=== PATIENT | female | born 1955 | race Caucasian/White ===

== ENCOUNTER 2019-01-08 19:06 | Inpatient (IN) ==
[2019-01-08] MEDS ORDERED: *HR* LORazepam 0.5 MG TABLET PO ONE (19:21)
[2019-01-08 19:47] LABS: Basophils # 0.1 K/mcL (0.0-0.2); Basophils % 0.8 %; Eosinophils # 0.1 K/mcL (0.0-0.6); Hematocrit 41.3 % (35.3-44.9); Hemoglobin 14.5 g/dL (11.5-15.4); Immature Granulocytes % 0.2 % (0-4); Immature Platelets 1.6 % (1.1-6.1); Lymphocytes % 52.5 %; Mean Corpuscular HGB Conc 35.1 g/dL (31.6-35.5); Mean Corpuscular Hemoglobin 30.7 pg (28.0-33.3); Mean Corpuscular Volume 87.3 fL (83.0-100.0); Mean Platelet Volume 8.7 fL (9.4-12.4); Monocytes # 0.6 K/mcL (0.0-1.3); Monocytes % 5.6 %; Neutrophils # 4.6 K/mcL (1.6-8.9); Platelet Count 377 K/mcL (140-400); Red Blood Count 4.73 M/mcL (3.82-4.97); Red Cell Distribution Width 13.6 % (11.5-14.5); Segmented Neutrophils % 39.9 %; White Blood Count 11.5 K/mcL (4.3-11.1)
[2019-01-08 20:00] LABS: Bilirubin,Urine Negative (Negative); Blood,Urine Negative (Negative); Clarity,Urine Cloudy (Clear); Color,Urine Yellow (Yellow); Glucose,Urine (UA) Normal (Normal); Ketones,Urine Negative (Negative); Leukocyte Esterase,Urine Negative (Negative); Nitrite,Urine Negative (Negative); PH,Urine 6.5 pH Units (5.0-8.0); Protein,Urine Negative (Neg-Trace); Specific Gravity,Urine 1.007 (1.010-1.025); Urobilinogen,Urine Normal (Normal)
[2019-01-08 20:02] LABS: Bacteria,Urine None Seen per hpf (None-Few); Hyaline Casts,Urine None Seen per lpf (None-Few); RBC,Urine 0-3 per hpf (0-3); Squamous Epithelial Cell,Urine Many per lpf (None-Few)
[2019-01-08 20:08] LABS: Acetaminophen < 10 mcg/mL (10-20); BUN/Creatinine Ratio 15 (6-26); Blood Urea Nitrogen 13 mg/dL (8-23); Calcium 8.9 mg/dL (8.6-10.3); Carbon Dioxide 26 mEq/L (23-29); Chloride 97 mEq/L (98-107); Ethanol < 10 mg/dL (Less than 10); Glucose 152 mg/dL (70-105); Osmolality,Calculated 273 (280-300); Potassium 3.1 mEq/L (3.5-5.1); Salicylate < 2.5 mg/dL (15.0-30.0); Sodium 130 mEq/L (136-145); eGFR For African Americans > 60 (> 60); eGFR For Non-African Americans > 60 (> 60)
[2019-01-08 20:19] LABS: Thyroid Stimulating Hormone 1.495 mcIU/mL (0.340-5.600)
[2019-01-08 20:25] LABS: Amphetamine Screen,Urine Negative ng/mL (Cutoff=1000); Barbiturate Screen,Urine Negative ng/mL (Cutoff=200); Benzodiazepines Screen,Urine Positive ng/mL (Cutoff=200); Cannabinoid Screen,Urine Negative ng/mL (Cutoff = 50); Cocaine Screen,Urine Negative ng/mL (Cutoff= 300); Opiate Screen,Urine Negative ng/mL (Cutoff=300); Phencyclidine Screen,Urine Negative ng/mL (Cutoff=25)
[2019-01-08] MEDS ORDERED: *HR* LORazepam 1 MG TABLET PO PRN (22:10)
[2019-01-08] MEDS ORDERED: hydrOXYzine pamoate 25 MG CAPSULE PO PRN (22:10)
[2019-01-08] MEDS ORDERED: Haloperidol Lactate 5 MG/ML VIAL IM PRN (22:10)
[2019-01-08] MEDS ORDERED: Mag Hydrox/Al Hydrox/Simeth 30 ML UDC PO PRN (22:10)
[2019-01-08] MEDS ORDERED: MOM Conc 10 ML UD.LIQ PO PRN (22:10)
[2019-01-08] MEDS ORDERED: *HR* LORazepam 2 MG/ML VIAL IM PRN (22:10)
[2019-01-08] MEDS ORDERED: traZODone 50 MG TABLET PO PRN (22:10)
[2019-01-08] MEDS ORDERED: Acetaminophen 325 MG TABLET PO PRN (22:10)
[2019-01-09] MEDS: Nicotine 21 MG PATCH.TD24 TD SCH ×2 (02:09→21:03)
[2019-01-09] MEDS ORDERED: diazePAM 5 MG TABLET PO PRN (07:18)
[2019-01-09] MEDS: diazePAM 5 MG TABLET PO SCH ×3 (11:13→20:46)
[2019-01-09] MEDS ORDERED: NON-FORMULARY MEDICATION 1 EACH EACH (Paliperidone Palmitate [Invega Sustenna] 234 MG) IM SCH (14:15)
[2019-01-09] MEDS: Mirtazapine 15 MG TABLET PO SCH (20:45)
[2019-01-09] MEDS: traZODone 50 MG TABLET PO SCH (20:45)
[2019-01-10] MEDS: diazePAM 5 MG TABLET PO SCH ×3 (08:36→20:25)
[2019-01-10] MEDS: BuPROPion XL (24 HR) 150 MG TABLET PO SCH (08:36)
[2019-01-10] MEDS: Nicotine 21 MG PATCH.TD24 TD SCH (08:51)
[2019-01-10] MEDS: Mirtazapine 15 MG TABLET PO SCH (20:25)
[2019-01-10] MEDS: traZODone 50 MG TABLET PO SCH (20:26)
[2019-01-11] MEDS: BuPROPion XL (24 HR) 150 MG TABLET PO SCH (08:07)
[2019-01-11] MEDS: Nicotine 21 MG PATCH.TD24 TD SCH (08:08)
[2019-01-11] MEDS: diazePAM 5 MG TABLET PO SCH (08:08)
[2019-01-11 10:06] VITALS: BP 151/90
[2019-01-11 11:00] LABS: Hematocrit 43.4 % (35.3-44.9); Hemoglobin 14.5 g/dL (11.5-15.4); Mean Corpuscular HGB Conc 33.4 g/dL (31.6-35.5); Mean Corpuscular Hemoglobin 30.1 pg (28.0-33.3); Mean Corpuscular Volume 90.2 fL (83.0-100.0); Mean Platelet Volume 9.2 fL (9.4-12.4); Platelet Count 429 K/mcL (140-400); Red Blood Count 4.81 M/mcL (3.82-4.97); Red Cell Distribution Width 14.1 % (11.5-14.5); White Blood Count 9.9 K/mcL (4.3-11.1)
[2019-01-11 11:18] LABS: Chol/HDL Ratio 4.4 (0-4.9)
[2019-01-11 11:20] LABS: Alanine Aminotransferase 9 Units/L (7-52); Albumin/Globulin Ratio 1.7 (1.1-2.2); Alkaline Phosphatase 78 Units/L (34-104); Aspartate Amino Transferase 13 Units/L (13-39); BUN/Creatinine Ratio 9 (6-26); Bilirubin,Total 0.3 mg/dL (0.3-1.0); Blood Urea Nitrogen 9 mg/dL (8-23); Calcium 9.4 mg/dL (8.6-10.3); Carbon Dioxide 26 mEq/L (23-29); Chloride 103 mEq/L (98-107); Globulin 2.4 g/dL (2.4-3.5); Glucose 76 mg/dL (70-105); Osmolality,Calculated 279 (280-300); Potassium 3.9 mEq/L (3.5-5.1); Sodium 136 mEq/L (136-145); Total Protein 6.4 g/dL (6.4-8.9); eGFR For African Americans > 60 (> 60); eGFR For Non-African Americans 54 (> 60)
[2019-01-11 11:41] LABS: Estimated Average Glucose 151 mg/dl
== END 2019-01-11 11:30 | disposition home or self-care (01) | DRG 885 ==
LOC: EMEROOARM 19:06 → 1ANU 22:03
PROVIDERS: ADMIT Psychiatry & Neurology Psychiatry; ATTEND Psychiatry & Neurology Psychiatry

== ENCOUNTER 2019-01-27 11:35 | Inpatient (IN) ==
[2019-01-27 12:08] LABS: Basophils # 0.1 K/mcL (0.0-0.2); Eosinophils # 0.1 K/mcL (0.0-0.6); Hematocrit 42.3 % (35.3-44.9); Hemoglobin 14.7 g/dL (11.5-15.4); Immature Granulocytes % 0.3 % (0-4); Lymphocytes # 3.9 K/mcL (0.6-4.6); Lymphocytes % 44.1 %; Mean Corpuscular HGB Conc 34.8 g/dL (31.6-35.5); Mean Corpuscular Hemoglobin 30.8 pg (28.0-33.3); Mean Corpuscular Volume 88.7 fL (83.0-100.0); Mean Platelet Volume 8.7 fL (9.4-12.4); Monocytes # 0.7 K/mcL (0.0-1.3); Monocytes % 7.9 %; Platelet Count 374 K/mcL (140-400); Red Blood Count 4.77 M/mcL (3.82-4.97); Red Cell Distribution Width 14.5 % (11.5-14.5); Segmented Neutrophils % 45.7 %; White Blood Count 8.7 K/mcL (4.3-11.1)
[2019-01-27 12:12] LABS: Bilirubin,Urine Negative (Negative); Blood,Urine Negative (Negative); Clarity,Urine Clear (Clear); Color,Urine Yellow (Yellow); Glucose,Urine (UA) Normal (Normal); Ketones,Urine Negative (Negative); Leukocyte Esterase,Urine Negative (Negative); Nitrite,Urine Negative (Negative); PH,Urine 6.5 pH Units (5.0-8.0); Protein,Urine Negative (Neg-Trace); Specific Gravity,Urine 1.006 (1.010-1.025); Urobilinogen,Urine Normal (Normal)
[2019-01-27 12:26] LABS: Amphetamine Screen,Urine Negative ng/mL (Cutoff=1000); Barbiturate Screen,Urine Negative ng/mL (Cutoff=200); Benzodiazepines Screen,Urine Positive ng/mL (Cutoff=200); Cannabinoid Screen,Urine Negative ng/mL (Cutoff = 50); Cocaine Screen,Urine Negative ng/mL (Cutoff= 300); Opiate Screen,Urine Negative ng/mL (Cutoff=300); Phencyclidine Screen,Urine Negative ng/mL (Cutoff=25)
[2019-01-27 12:28] LABS: Acetaminophen < 10 mcg/mL (10-20); BUN/Creatinine Ratio 10 (6-26); Blood Urea Nitrogen 9 mg/dL (8-23); Carbon Dioxide 28 mEq/L (23-29); Chloride 100 mEq/L (98-107); Ethanol < 10 mg/dL (Less than 10); Glucose 100 mg/dL (70-105); Osmolality,Calculated 277 (280-300); Potassium 3.1 mEq/L (3.5-5.1); Salicylate < 2.5 mg/dL (15.0-30.0); Sodium 134 mEq/L (136-145); eGFR For African Americans > 60 (> 60); eGFR For Non-African Americans > 60 (> 60)
[2019-01-27] MEDS ORDERED: diazePAM 5 MG TABLET PO ONE (14:20)
[2019-01-27] MEDS ORDERED: Ibuprofen 200 MG TABLET PO PRN (18:27)
[2019-01-27] MEDS ORDERED: *HR* LORazepam 2 MG/ML VIAL IM PRN (18:28)
[2019-01-27] MEDS ORDERED: Mag Hydrox/Al Hydrox/Simeth 30 ML UDC PO PRN (18:28)
[2019-01-27] MEDS ORDERED: MOM Conc 10 ML UD.LIQ PO PRN (18:28)
[2019-01-27] MEDS ORDERED: Haloperidol Lactate 5 MG/ML VIAL IM PRN (18:28)
[2019-01-27] MEDS ORDERED: *HR* LORazepam 1 MG TABLET PO PRN (18:28)
[2019-01-27] MEDS: Nicotine 21 MG PATCH.TD24 TD SCH (20:51)
[2019-01-27] MEDS: Potassium Chloride Elixir 20 MEQ/15 ML UDC PO SCH (20:52)
[2019-01-27] MEDS: hydrOXYzine pamoate 25 MG CAPSULE PO PRN (20:53)
[2019-01-27] MEDS: Cholecalciferol (D-3) 1,000 UNIT (25MCG) TABLET PO SCH (20:54)
[2019-01-27] MEDS: traZODone 50 MG TABLET PO SCH (20:54)
[2019-01-27] MEDS: diazePAM 5 MG TABLET PO PRN (20:57)
[2019-01-28] MEDS: diazePAM 5 MG TABLET PO PRN (08:35)
[2019-01-28] MEDS: Furosemide 40 MG TABLET PO SCH (08:35)
[2019-01-28] MEDS: Nicotine 21 MG PATCH.TD24 TD SCH (08:35)
[2019-01-28] MEDS ORDERED: BuPROPion XL (24 HR) 150 MG TABLET PO SCH ×2 (09:00→11:15)
[2019-01-28] MEDS ORDERED: BuPROPion XL (24 HR) 150 MG TABLET PO ONE (11:14)
[2019-01-28] MEDS: diazePAM 5 MG TABLET PO SCH ×2 (14:40→21:34)
[2019-01-28] MEDS: Cholecalciferol (D-3) 1,000 UNIT (25MCG) TABLET PO SCH (21:33)
[2019-01-28] MEDS: traZODone 50 MG TABLET PO SCH (21:34)
[2019-01-28] MEDS: Potassium Chloride Elixir 20 MEQ/15 ML UDC PO SCH (21:35)
[2019-01-29] MEDS: Nicotine 21 MG PATCH.TD24 TD SCH (09:36)
[2019-01-29] MEDS: diazePAM 5 MG TABLET PO SCH ×3 (09:36→20:30)
[2019-01-29] MEDS: BuPROPion XL (24 HR) 150 MG TABLET PO SCH (09:36)
[2019-01-29] MEDS: Furosemide 40 MG TABLET PO SCH (09:36)
[2019-01-29] MEDS ORDERED: Cyanocobalamin (B-12) 1,000 MCG/ML VIAL IM ONE (13:38)
[2019-01-29] MEDS: traZODone 50 MG TABLET PO SCH (20:29)
[2019-01-29] MEDS: Potassium Chloride Elixir 20 MEQ/15 ML UDC PO SCH (20:29)
[2019-01-29] MEDS: Cholecalciferol (D-3) 1,000 UNIT (25MCG) TABLET PO SCH (20:29)
[2019-01-29] MEDS: hydrOXYzine pamoate 25 MG CAPSULE PO PRN (22:27)
[2019-01-30] MEDS: BuPROPion XL (24 HR) 150 MG TABLET PO SCH (09:35)
[2019-01-30] MEDS: Furosemide 40 MG TABLET PO SCH (09:35)
[2019-01-30] MEDS: diazePAM 5 MG TABLET PO SCH ×3 (09:35→21:14)
[2019-01-30] MEDS: Cyanocobalamin (B-12) 1,000 MCG TABLET PO SCH (09:35)
[2019-01-30] MEDS: Folic Acid 1 MG TABLET PO SCH (09:35)
[2019-01-30] MEDS: Nicotine 21 MG PATCH.TD24 TD SCH (09:36)
[2019-01-30] MEDS: traZODone 50 MG TABLET PO SCH (21:13)
[2019-01-30] MEDS: hydrOXYzine pamoate 25 MG CAPSULE PO PRN (21:13)
[2019-01-30] MEDS: Cholecalciferol (D-3) 1,000 UNIT (25MCG) TABLET PO SCH (21:13)
[2019-01-30] MEDS: Potassium Chloride Elixir 20 MEQ/15 ML UDC PO SCH (21:14)
[2019-01-31] MEDS: Furosemide 40 MG TABLET PO SCH (09:01)
[2019-01-31] MEDS: BuPROPion XL (24 HR) 150 MG TABLET PO SCH (09:01)
[2019-01-31] MEDS: Cyanocobalamin (B-12) 1,000 MCG TABLET PO SCH (09:01)
[2019-01-31] MEDS: diazePAM 5 MG TABLET PO SCH (09:01)
[2019-01-31] MEDS: Folic Acid 1 MG TABLET PO SCH (09:01)
[2019-01-31] MEDS: Nicotine 21 MG PATCH.TD24 TD SCH (09:02)
[2019-01-31 11:23] VITALS: BP 114/86
== END 2019-01-31 12:35 | disposition home or self-care (01) | DRG 885 ==
LOC: 1ANU 11:35 → EMEROOARM 11:35 → 1ANU 17:18 → SUATTDRO 18:28
PROVIDERS: ADMIT Psychiatry & Neurology Psychiatry; ATTEND Psychiatry & Neurology Forensic Psychiatry

== ENCOUNTER 2019-11-08 13:52 | Inpatient (IN) ==
[2019-11-08] MEDS ORDERED: *HR* FentaNYL (PF) 100 MCG/2 ML VIAL IVP ONE (14:01)
[2019-11-08 14:29] LABS: Basophils # 0.1 K/mcL (0.0-0.2); Basophils % 0.8 %; Eosinophils # 0.2 K/mcL (0.0-0.6); Eosinophils % 1.9 %; Hematocrit 37.2 % (35.3-44.9); Hemoglobin 12.4 g/dL (11.5-15.4); Immature Granulocytes % 0.3 % (0-4); Lymphocytes # 3.3 K/mcL (0.6-4.6); Lymphocytes % 30.7 %; Mean Corpuscular HGB Conc 33.3 g/dL (31.6-35.5); Mean Corpuscular Hemoglobin 29.7 pg (28.0-33.3); Mean Corpuscular Volume 89.2 fL (83.0-100.0); Mean Platelet Volume 8.5 fL (9.4-12.4); Monocytes # 0.7 K/mcL (0.0-1.3); Neutrophils # 6.3 K/mcL (1.6-8.9); Platelet Count 373 K/mcL (140-400); Red Blood Count 4.17 M/mcL (3.82-4.97); Red Cell Distribution Width 14.3 % (11.5-14.5); Segmented Neutrophils % 59.3 %; White Blood Count 10.6 K/mcL (4.3-11.1)
[2019-11-08 14:45] LABS: BUN/Creatinine Ratio 6 (6-26); Blood Urea Nitrogen 7 mg/dL (8-23); Calcium 8.6 mg/dL (8.6-10.3); Carbon Dioxide 29 mEq/L (23-29); Chloride 99 mEq/L (98-107); Glucose 102 mg/dL (70-105); Osmolality,Calculated 276 (280-300); Potassium 3.8 mEq/L (3.5-5.1); Sodium 134 mEq/L (136-145); Troponin I < 0.03 ng/mL (< 0.04); eGFR For African Americans 58 (> 60); eGFR For Non-African Americans 48 (> 60)
[2019-11-08] MEDS ORDERED: *HR* Propofol 200 MG/20 ML VIAL IVP ONE (15:39)
[2019-11-08] MEDS ORDERED: 0.9 % Sodium Chloride 1,000 ML ONE (16:31)
[2019-11-08] MEDS ORDERED: Ondansetron 4 MG/2 ML VIAL IVP PRN (17:49)
[2019-11-08] MEDS ORDERED: Naloxone 0.4 MG/ML INJ IVP PRN (17:49)
[2019-11-08] MEDS ORDERED: Perflutren Lipid Microsphere 1.3 ML in 0.9 % Sodium Chloride 8.7 ML IVP PRN (17:51)
[2019-11-08] MEDS ORDERED: diazePAM 5 MG TABLET PO PRN (17:56)
[2019-11-08] MEDS: hydrOXYzine pamoate 25 MG CAPSULE PO SCH (21:10)
[2019-11-08] MEDS: *HR* Heparin 5,000 UNIT/ML VIAL SQ SCH (21:10)
[2019-11-08] MEDS: Cholecalciferol (D-3) 1,000 UNIT (25MCG) TABLET PO SCH (21:10)
[2019-11-08] MEDS: *HR* OxyCODONE Immed Rel 5 MG TABLET PO PRN (21:10)
[2019-11-09] MEDS: *HR* HYDROcodone/Acet 5/325 mg TABLET PO PRN ×4 (00:09→23:03)
[2019-11-09] MEDS ORDERED: QUEtiapine Fumarate 100 MG TABLET PO SCH (02:00)
[2019-11-09 02:42] LABS: Basophils # 0.1 K/mcL (0.0-0.2); Basophils % 0.7 %; Eosinophils # 0.2 K/mcL (0.0-0.6); Eosinophils % 1.5 %; Hematocrit 36.5 % (35.3-44.9); Immature Granulocytes % 0.2 % (0-4); Lymphocytes # 3.9 K/mcL (0.6-4.6); Lymphocytes % 29.2 %; Mean Corpuscular HGB Conc 32.9 g/dL (31.6-35.5); Mean Corpuscular Hemoglobin 29.1 pg (28.0-33.3); Mean Corpuscular Volume 88.6 fL (83.0-100.0); Mean Platelet Volume 8.7 fL (9.4-12.4); Monocytes # 1.4 K/mcL (0.0-1.3); Monocytes % 10.7 %; Neutrophils # 7.6 K/mcL (1.6-8.9); Platelet Count 379 K/mcL (140-400); Red Blood Count 4.12 M/mcL (3.82-4.97); Red Cell Distribution Width 14.3 % (11.5-14.5); Segmented Neutrophils % 57.7 %; White Blood Count 13.2 K/mcL (4.3-11.1)
[2019-11-09 02:44] LABS: Prothrombin Time 11.9 Seconds (9.4-12.1)
[2019-11-09 02:47] LABS: Activated Partial Thrombo Time 35.3 Seconds (26.0-36.0)
[2019-11-09 03:01] LABS: Alanine Aminotransferase 10 Units/L (7-52); Albumin 3.8 g/dL (3.5-5.7); Albumin/Globulin Ratio 1.7 (1.1-2.2); Alkaline Phosphatase 82 Units/L (34-104); Aspartate Amino Transferase 13 Units/L (13-39); BUN/Creatinine Ratio 8 (6-26); Bilirubin,Total 0.4 mg/dL (0.3-1.0); Blood Urea Nitrogen 8 mg/dL (8-23); Calcium 8.9 mg/dL (8.6-10.3); Carbon Dioxide 27 mEq/L (23-29); Chloride 104 mEq/L (98-107); Globulin 2.3 g/dL (2.4-3.5); Glucose 99 mg/dL (70-105); Magnesium 1.6 mg/dL (1.6-2.6); Osmolality,Calculated 284 (280-300); Phosphorous 3.7 mg/dL (2.7-4.5); Potassium 3.4 mEq/L (3.5-5.1); Sodium 138 mEq/L (136-145); Total Protein 6.1 g/dL (6.4-8.9); eGFR For African Americans > 60 (> 60); eGFR For Non-African Americans 55 (> 60)
[2019-11-09] MEDS: *HR* OxyCODONE Immed Rel 5 MG TABLET PO PRN ×2 (03:47→19:54)
[2019-11-09] MEDS: *HR* Heparin 5,000 UNIT/ML VIAL SQ SCH ×4 (05:02→22:55)
[2019-11-09] MEDS: hydrOXYzine pamoate 25 MG CAPSULE PO SCH ×2 (08:55→19:54)
[2019-11-09] MEDS: BuPROPion XL (24 HR) 150 MG TABLET PO SCH (08:55)
[2019-11-09] MEDS: PARoxetine 20 MG TABLET PO SCH (08:55)
[2019-11-09] MEDS: Nicotine 21 MG PATCH.TD24 TD SCH (15:53)
[2019-11-09 18:59] LABS: Adenovirus Not Detected (Not Detect); Bordetella Pertussis Not Detected (Not Detect); Chlamydophila pneumoniae Not Detected (Not Detect); Coronavirus 229E Not Detected (Not Detect); Coronavirus HKU1 Not Detected (Not Detect); Coronavirus NL63 Not Detected (Not Detect); Coronavirus OC43 Not Detected (Not Detect); Human Metapneumovirus Not Detected (Not Detect); Human Rhinovirus/Enterovirus Not Detected (Not Detect); Influenza A Subtype 2009 H1 Not Detected (Not Detect); Influenza B Not Detected (Not Detect); Mycoplasma pneumoniae Not Detected (Not Detect); Parainfluenza Virus 1 Not Detected (Not Detect); Parainfluenza Virus 2 Not Detected (Not Detect); Parainfluenza Virus 3 Not Detected (Not Detect); Parainfluenza Virus 4 Not Detected (Not Detect); Respiratory Syncytial Virus Not Detected (Not Detect); SARS-CoV-2 Not Detected (Not Detect)
[2019-11-09] MEDS: Cholecalciferol (D-3) 1,000 UNIT (25MCG) TABLET PO SCH (19:53)
[2019-11-09] MEDS ORDERED: QUEtiapine Fumarate 100 MG TABLET PO ONE (22:15)
[2019-11-10] MEDS: *HR* Heparin 5,000 UNIT/ML VIAL SQ SCH ×3 (04:32→22:16)
[2019-11-10] MEDS: *HR* OxyCODONE Immed Rel 5 MG TABLET PO PRN ×2 (06:22→12:34)
[2019-11-10] MEDS: hydrOXYzine pamoate 25 MG CAPSULE PO SCH ×2 (08:12→22:18)
[2019-11-10] MEDS: PARoxetine 20 MG TABLET PO SCH (08:12)
[2019-11-10] MEDS: BuPROPion XL (24 HR) 150 MG TABLET PO SCH (08:12)
[2019-11-10] MEDS: Nicotine 21 MG PATCH.TD24 TD SCH (08:13)
[2019-11-10] MEDS: *HR* HYDROcodone/Acet 5/325 mg TABLET PO PRN (16:41)
[2019-11-10] MEDS ORDERED: Ondansetron 4 MG/2 ML VIAL ONE (17:17)
[2019-11-10] MEDS ORDERED: *HR* Propofol 200 MG/20 ML VIAL IVP ONE (17:17)
[2019-11-10] MEDS ORDERED: Lidocaine -MPF 2% 2 ML VIAL ONE (17:17)
[2019-11-10] MEDS ORDERED: Dexamethasone 4 MG/ML VIAL ONE (17:17)
[2019-11-10] MEDS ORDERED: *HR* Succinylcholine 200 MG/10 ML VIAL IVP ONE (17:17)
[2019-11-10] MEDS ORDERED: Lidocaine 1% 0 ML ONE (17:20)
[2019-11-10] MEDS ORDERED: Ropivacaine/PF 0.5% 30 ML VIAL ONE ×2 (17:31→17:41)
[2019-11-10] MEDS ORDERED: ROPIVACAINE/PF/NS 0.25% 1 EACH SYRINGE INTRAART ONE (17:31)
[2019-11-10] MEDS ORDERED: *HR* Midazolam HCl 2 MG/2 ML VIAL ONE (17:35)
[2019-11-10] MEDS ORDERED: *HR* FentaNYL (PF) 100 MCG/2 ML VIAL ONE (17:36)
[2019-11-10] MEDS ORDERED: CeFAZolin Syr 2,000MG/20 ML 2,000 MG/20 ML SYRINGE IVPB ONE (17:47)
[2019-11-10] MEDS ORDERED: *HR* HYDROmorphone PF 0.5 MG/0.5 ML SYRINGE IVP PRN (18:08)
[2019-11-10] MEDS ORDERED: EPHEDrine 50 MG/ML VIAL ONE (18:24)
[2019-11-10] MEDS ORDERED: Perflutren Lipid Microsphere 1.3 ML in 0.9 % Sodium Chloride 8.7 ML IVP PRN (20:09)
[2019-11-10] MEDS ORDERED: Naloxone 0.4 MG/ML INJ IVP PRN (20:09)
[2019-11-10] MEDS ORDERED: *HR* OxyCODONE Immed Rel 5 MG TABLET PO PRN (20:09)
[2019-11-10] MEDS ORDERED: Ondansetron 4 MG/2 ML VIAL IVP PRN (20:09)
[2019-11-10] MEDS ORDERED: diazePAM 5 MG TABLET PO PRN (20:09)
[2019-11-10] MEDS: Cholecalciferol (D-3) 1,000 UNIT (25MCG) TABLET PO SCH (22:16)
[2019-11-10] MEDS: ceFAZolin 2,000 MG in 0.9 % Sodium Chloride 100 ML IVPB SCH (23:50)
[2019-11-11] MEDS ORDERED: ceFAZolin 2,000 MG in 0.9 % Sodium Chloride 100 ML IVPB SCH
[2019-11-11] MEDS: *HR* HYDROcodone/Acet 5/325 mg TABLET PO PRN ×2 (00:03→15:51)
[2019-11-11] MEDS: *HR* Heparin 5,000 UNIT/ML VIAL SQ SCH ×3 (05:26→20:23)
[2019-11-11] MEDS: BuPROPion XL (24 HR) 150 MG TABLET PO SCH (08:39)
[2019-11-11] MEDS: hydrOXYzine pamoate 25 MG CAPSULE PO SCH ×2 (08:40→20:23)
[2019-11-11] MEDS: Nicotine 21 MG PATCH.TD24 TD SCH (08:40)
[2019-11-11] MEDS: PARoxetine 20 MG TABLET PO SCH (08:40)
[2019-11-11 10:38] LABS: Hematocrit 30.7 % (35.3-44.9); Mean Corpuscular HGB Conc 31.9 g/dL (31.6-35.5); Mean Corpuscular Hemoglobin 29.3 pg (28.0-33.3); Mean Corpuscular Volume 91.6 fL (83.0-100.0); Mean Platelet Volume 8.7 fL (9.4-12.4); Platelet Count 308 K/mcL (140-400); Red Blood Count 3.35 M/mcL (3.82-4.97); Red Cell Distribution Width 14.1 % (11.5-14.5); White Blood Count 10.3 K/mcL (4.3-11.1)
[2019-11-11 10:39] LABS: Hemoglobin 9.8 g/dL (11.5-15.4)
[2019-11-11] MEDS: ceFAZolin 2,000 MG in 0.9 % Sodium Chloride 100 ML IVPB SCH ×3 (11:15→23:38)
[2019-11-11] MEDS: polyethylene glycoL 3350 17 GM POWD.PACK PO SCH ×2 (15:51→20:28)
[2019-11-11] MEDS: Cholecalciferol (D-3) 1,000 UNIT (25MCG) TABLET PO SCH (20:23)
[2019-11-11] MEDS ORDERED: QUEtiapine Fumarate 100 MG TABLET PO SCH (21:00)
[2019-11-12] MEDS: *HR* HYDROcodone/Acet 5/325 mg TABLET PO PRN (05:28)
[2019-11-12] MEDS: *HR* Heparin 5,000 UNIT/ML VIAL SQ SCH (05:29)
[2019-11-12] MEDS: ceFAZolin 2,000 MG in 0.9 % Sodium Chloride 100 ML IVPB SCH (08:46)
[2019-11-12] MEDS: Nicotine 21 MG PATCH.TD24 TD SCH (08:46)
[2019-11-12] MEDS: hydrOXYzine pamoate 25 MG CAPSULE PO SCH (08:46)
[2019-11-12] MEDS: polyethylene glycoL 3350 17 GM POWD.PACK PO SCH (08:46)
[2019-11-12] MEDS: PARoxetine 20 MG TABLET PO SCH (08:46)
[2019-11-12] MEDS: BuPROPion XL (24 HR) 150 MG TABLET PO SCH (08:46)
[2019-11-12 11:17] VITALS: BP 108/68
== END 2019-11-12 12:04 | DRG 478 ==
LOC: EMEROOARM 13:52 → 3NENU 13:52 → SUATTDRO 11-09 15:56
PROVIDERS: ADMIT Internal Medicine; ATTEND Internal Medicine

== ENCOUNTER 2020-11-03 16:39 | Inpatient (IN) ==
[2020-11-03 17:18] LABS: Basophils # 0.1 K/mcL (0.0-0.2); Eosinophils # 0.1 K/mcL (0.0-0.6); Eosinophils % 1.4 %; Hematocrit 39.8 % (35.3-44.9); Hemoglobin 13.6 g/dL (11.5-15.4); Immature Granulocytes % 0.2 % (0-4); Lymphocytes # 4.3 K/mcL (0.6-4.6); Lymphocytes % 42.5 %; Mean Corpuscular HGB Conc 34.2 g/dL (31.6-35.5); Mean Corpuscular Hemoglobin 31.8 pg (28.0-33.3); Mean Platelet Volume 8.5 fL (9.4-12.4); Monocytes # 1.1 K/mcL (0.0-1.3); Monocytes % 10.8 %; Neutrophils # 4.5 K/mcL (1.6-8.9); Platelet Count 355 K/mcL (140-400); Red Blood Count 4.28 M/mcL (3.82-4.97); Red Cell Distribution Width 13.8 % (11.5-14.5); Segmented Neutrophils % 44.1 %; White Blood Count 10.2 K/mcL (4.3-11.1)
[2020-11-03 17:19] LABS: Bilirubin,Urine Negative (Negative); Blood,Urine Negative (Negative); Clarity,Urine Clear (Clear); Color,Urine Colorless (Yellow); Glucose,Urine (UA) Normal (Normal); Ketones,Urine Negative (Negative); Leukocyte Esterase,Urine Negative (Negative); Nitrite,Urine Negative (Negative); Protein,Urine Negative (Neg-Trace); Specific Gravity,Urine 1.006 (1.010-1.025); Urobilinogen,Urine Normal (Normal)
[2020-11-03 17:35] LABS: Estimated Average Glucose 128 mg/dl; Hemoglobin A1C 6.1 %
[2020-11-03 17:37] LABS: Amphetamine Screen,Urine Negative ng/mL (Cutoff=1000); Barbiturate Screen,Urine Negative ng/mL (Cutoff=200); Benzodiazepines Screen,Urine Positive ng/mL (Cutoff=200); Cannabinoid Screen,Urine Negative ng/mL (Cutoff = 50); Cocaine Screen,Urine Negative ng/mL (Cutoff= 300); Opiate Screen,Urine Negative ng/mL (Cutoff=300); Phencyclidine Screen,Urine Negative ng/mL (Cutoff=25)
[2020-11-03 17:44] LABS: Acetaminophen < 10 mcg/mL (10-20); BUN/Creatinine Ratio 10 (6-26); Blood Urea Nitrogen 8 mg/dL (8-23); Calcium 9.1 mg/dL (8.6-10.3); Carbon Dioxide 26 mEq/L (23-29); Chloride 101 mEq/L (98-107); Chol/HDL Ratio 3.5 (0-4.9); Cholesterol 162 mg/dL (< 200); Glucose 72 mg/dL (70-105); HDL Cholesterol 46 mg/dL (40-59); LDL Cholesterol,Calculated 74 mg/dL (< 100); Osmolality,Calculated 277 (280-300); Sodium 135 mEq/L (136-145); Triglycerides 212 mg/dL (< 150); eGFR For African Americans > 60 (> 60); eGFR For Non-African Americans > 60 (> 60)
[2020-11-03 17:45] LABS: Ethanol < 10 mg/dL (Less than 10)
[2020-11-03 17:49] LABS: Salicylate < 2.5 mg/dL (15.0-30.0)
[2020-11-03] MEDS: Nicotine 21 MG PATCH.TD24 TD SCH (18:13)
[2020-11-03] MEDS ORDERED: *HR* LORazepam 0.5 MG TABLET PO ONE (18:47)
[2020-11-03] MEDS ORDERED: Tdap (Boostrix) Vaccine 0.5 ML SYRINGE IM ONE (21:20)
[2020-11-03 21:43] LABS: Influenza A PCR Negative (Negative); Influenza B PCR Negative (Negative); Resp. Syncytial Virus PCR Negative (Negative)
[2020-11-03 21:44] LABS: SARS-CoV-2 by PCR (In House) Negative (Negative)
[2020-11-03] MEDS ORDERED: haloperidoL 5 MG TABLET PO PRN (22:06)
[2020-11-03] MEDS ORDERED: *HR* LORazepam 2 MG/ML VIAL IM PRN (22:06)
[2020-11-03] MEDS ORDERED: Haloperidol Lactate 5 MG/ML VIAL IM PRN (22:06)
[2020-11-03] MEDS ORDERED: *HR* LORazepam 1 MG TABLET PO PRN (22:06)
[2020-11-03] MEDS ORDERED: diazePAM 5 MG TABLET PO PRN (22:09)
[2020-11-03] MEDS ORDERED: Scopolamine Patch 1.5 MG PATCH.TD72 TD PRN (22:09)
[2020-11-03] MEDS ORDERED: DICLOFENAC TP PRN (22:22)
[2020-11-03] MEDS: Acetaminophen 325 MG TABLET PO PRN (23:55)
[2020-11-03] MEDS: traZODone 50 MG TABLET PO SCH (23:56)
[2020-11-04] MEDS: hydrOXYzine pamoate 25 MG CAPSULE PO PRN ×3 (04:07→22:51)
[2020-11-04] MEDS: hydrOXYzine pamoate 25 MG CAPSULE PO SCH ×3 (05:46→21:05)
[2020-11-04] MEDS ORDERED: Mag Hydrox/Al Hydrox/Simeth 30 ML UDC PO PRN (08:18)
[2020-11-04] MEDS ORDERED: MOM Conc 10 ML UD.LIQ PO PRN (08:18)
[2020-11-04] MEDS: Nicotine 21 MG PATCH.TD24 TD SCH (08:30)
[2020-11-04] MEDS: Furosemide 20 MG TABLET PO SCH (08:30)
[2020-11-04] MEDS: polyethylene glycoL 3350 17 GM POWD.PACK PO SCH ×2 (08:30→21:04)
[2020-11-04] MEDS: PARoxetine 20 MG TABLET PO SCH (08:30)
[2020-11-04] MEDS: Mirabegron [Myrbetriq] 25 MG PO SCH (09:00)
[2020-11-04] MEDS ORDERED: BuPROPion XL (24 HR) 150 MG TABLET PO ONE (10:40)
[2020-11-04] MEDS: BuPROPion XL (24 HR) 150 MG TABLET PO SCH (11:26)
[2020-11-04] MEDS: clonazePAM 1 MG TABLET PO SCH ×2 (11:26→21:15)
[2020-11-04] MEDS ORDERED: *HR* Rivaroxaban 10 MG TABLET PO SCH (17:00)
[2020-11-04] MEDS ORDERED: clonazePAM 1 MG TABLET PO SCH (21:00)
[2020-11-04] MEDS: traZODone 50 MG TABLET PO SCH (21:04)
[2020-11-04] MEDS: Cholecalciferol (D-3) 1,000 UNIT (25MCG) TABLET PO SCH (21:05)
[2020-11-04] MEDS: traZODone 50 MG TABLET PO PRN (22:51)
[2020-11-05] MEDS ORDERED: BuPROPion XL (24 HR) 150 MG TABLET PO SCH (09:00)
[2020-11-05] MEDS: polyethylene glycoL 3350 17 GM POWD.PACK PO SCH ×2 (09:25→20:42)
[2020-11-05] MEDS: hydrOXYzine pamoate 25 MG CAPSULE PO SCH ×2 (09:26→20:42)
[2020-11-05] MEDS: BuPROPion XL (24 HR) 150 MG TABLET PO SCH (09:26)
[2020-11-05] MEDS: PARoxetine 20 MG TABLET PO SCH (09:26)
[2020-11-05] MEDS: Furosemide 20 MG TABLET PO SCH (09:26)
[2020-11-05] MEDS: clonazePAM 1 MG TABLET PO SCH ×2 (09:26→20:42)
[2020-11-05] MEDS: Mirabegron [Myrbetriq] 25 MG PO SCH (09:26)
[2020-11-05] MEDS: Nicotine 21 MG PATCH.TD24 TD SCH (09:26)
[2020-11-05] MEDS: hydrOXYzine pamoate 25 MG CAPSULE PO PRN (12:21)
[2020-11-05] MEDS: Cholecalciferol (D-3) 1,000 UNIT (25MCG) TABLET PO SCH (20:42)
[2020-11-05] MEDS: traZODone 50 MG TABLET PO SCH (20:42)
[2020-11-06] MEDS: hydrOXYzine pamoate 25 MG CAPSULE PO SCH ×2 (09:19→20:17)
[2020-11-06] MEDS: PARoxetine 20 MG TABLET PO SCH (09:19)
[2020-11-06] MEDS: Furosemide 20 MG TABLET PO SCH (09:20)
[2020-11-06] MEDS: Nicotine 21 MG PATCH.TD24 TD SCH (09:20)
[2020-11-06] MEDS: clonazePAM 1 MG TABLET PO SCH ×2 (09:20→20:17)
[2020-11-06] MEDS: BuPROPion XL (24 HR) 150 MG TABLET PO SCH (09:20)
[2020-11-06] MEDS: polyethylene glycoL 3350 17 GM POWD.PACK PO SCH ×2 (09:21→20:18)
[2020-11-06] MEDS: hydrOXYzine pamoate 25 MG CAPSULE PO PRN ×2 (13:09→22:06)
[2020-11-06] MEDS: traZODone 50 MG TABLET PO SCH (20:17)
[2020-11-06] MEDS: Cholecalciferol (D-3) 1,000 UNIT (25MCG) TABLET PO SCH (20:17)
[2020-11-06] MEDS: traZODone 50 MG TABLET PO PRN (22:06)
[2020-11-07] MEDS: Nicotine 21 MG PATCH.TD24 TD SCH (08:51)
[2020-11-07] MEDS: hydrOXYzine pamoate 25 MG CAPSULE PO SCH (08:52)
[2020-11-07] MEDS: polyethylene glycoL 3350 17 GM POWD.PACK PO SCH (08:52)
[2020-11-07] MEDS: Furosemide 20 MG TABLET PO SCH (08:53)
[2020-11-07] MEDS: clonazePAM 1 MG TABLET PO SCH (08:53)
[2020-11-07] MEDS: PARoxetine 20 MG TABLET PO SCH (08:54)
[2020-11-07] MEDS ORDERED: Paliperidone Palmitate 234 MG/1.5 ML SYRINGE IM SCH (09:00)
[2020-11-07] MEDS ORDERED: BuPROPion XL (24 HR) 150 MG TABLET PO SCH (09:00)
[2020-11-07] MEDS: Acetaminophen 325 MG TABLET PO PRN (09:01)
[2020-11-07 10:45] VITALS: BP 100/70; PULSE 91; TEMP 97.3; O2SAT 95
[2020-11-07] MEDS ORDERED: NON-FORMULARY MEDICATION 1 EACH EACH (Alendronate Sodium [Fosamax] 70 MG Tablet) PO SCH (22:09)
== END 2020-11-07 12:20 | disposition home or self-care (01) | DRG 885 ==
LOC: EMEROOARM 16:39 → 1ANU 22:43
PROVIDERS: ADMIT Psychiatry & Neurology Psychiatry; ATTEND Psychiatry & Neurology Psychiatry

== ENCOUNTER 2020-12-31 15:05 | Inpatient (IN) ==
[2020-12-31 16:28] LABS: Bilirubin,Urine Negative (Negative); Blood,Urine Negative (Negative); Clarity,Urine Clear (Clear); Color,Urine Colorless (Yellow); Glucose,Urine (UA) Normal (Normal); Ketones,Urine Negative (Negative); Leukocyte Esterase,Urine Negative (Negative); Nitrite,Urine Negative (Negative); Protein,Urine Negative (Neg-Trace); Specific Gravity,Urine 1.007 (1.010-1.025); Urobilinogen,Urine Normal (Normal)
[2020-12-31 16:28] LABS: Basophils # 0.1 K/mcL (0.0-0.2); Basophils % 1.3 %; Eosinophils # 0.1 K/mcL (0.0-0.6); Eosinophils % 1.7 %; Hematocrit 43.2 % (35.3-44.9); Hemoglobin 13.9 g/dL (11.5-15.4); Immature Granulocytes % 0.4 % (0-4); Lymphocytes # 3.1 K/mcL (0.6-4.6); Lymphocytes % 42.7 %; Mean Corpuscular HGB Conc 32.2 g/dL (31.6-35.5); Mean Corpuscular Hemoglobin 30.3 pg (28.0-33.3); Mean Corpuscular Volume 94.3 fL (83.0-100.0); Mean Platelet Volume 8.6 fL (9.4-12.4); Monocytes # 0.4 K/mcL (0.0-1.3); Monocytes % 6.2 %; Neutrophils # 3.4 K/mcL (1.6-8.9); Platelet Count 382 K/mcL (140-400); Red Blood Count 4.58 M/mcL (3.82-4.97); Red Cell Distribution Width 13.7 % (11.5-14.5); Segmented Neutrophils % 47.7 %; White Blood Count 7.1 K/mcL (4.3-11.1)
[2020-12-31 16:33] LABS: Acetaminophen < 10 mcg/mL (10-20); BUN/Creatinine Ratio 9 (6-26); Blood Urea Nitrogen 10 mg/dL (8-23); Calcium 8.2 mg/dL (8.6-10.3); Carbon Dioxide 25 mEq/L (23-29); Chloride 101 mEq/L (98-107); Ethanol < 10 mg/dL (Less than 10); Glucose 163 mg/dL (70-105); Osmolality,Calculated 285 (280-300); Potassium 3.7 mEq/L (3.5-5.1); Salicylate < 2.5 mg/dL (15.0-30.0); Sodium 136 mEq/L (136-145); eGFR For African Americans 58 (> 60); eGFR For Non-African Americans 48 (> 60)
[2020-12-31 17:00] LABS: Amphetamine Screen,Urine Negative ng/mL (Cutoff=1000); Barbiturate Screen,Urine Negative ng/mL (Cutoff=200); Benzodiazepines Screen,Urine Positive ng/mL (Cutoff=200); Cannabinoid Screen,Urine Negative ng/mL (Cutoff = 50); Cocaine Screen,Urine Negative ng/mL (Cutoff= 300); Opiate Screen,Urine Negative ng/mL (Cutoff=300); Phencyclidine Screen,Urine Negative ng/mL (Cutoff=25)
[2020-12-31] MEDS ORDERED: MOM Conc 10 ML UD.LIQ PO PRN (18:31)
[2020-12-31] MEDS ORDERED: Mag Hydrox/Al Hydrox/Simeth 30 ML UDC PO PRN (18:31)
[2020-12-31] MEDS ORDERED: Haloperidol Lactate 5 MG/ML VIAL IM PRN (18:31)
[2020-12-31] MEDS ORDERED: Nicotine 2 MG GUM BC PRN (18:31)
[2020-12-31] MEDS ORDERED: *HR* LORazepam 2 MG/ML VIAL IM PRN (18:31)
[2020-12-31] MEDS ORDERED: haloperidoL 5 MG TABLET PO PRN (18:31)
[2020-12-31 20:29] LABS: Influenza A PCR Negative (Negative); Influenza B PCR Negative (Negative); Resp. Syncytial Virus PCR Negative (Negative)
[2020-12-31 20:35] LABS: SARS-CoV-2 by PCR (In House) Negative (Negative)
[2020-12-31] MEDS: Mirtazapine 15 MG TABLET PO SCH (21:31)
[2020-12-31] MEDS: traZODone 50 MG TABLET PO SCH (21:31)
[2020-12-31] MEDS: clonazePAM 1 MG TABLET PO SCH (21:31)
[2020-12-31] MEDS: hydrOXYzine pamoate 25 MG CAPSULE PO PRN (21:32)
[2020-12-31] MEDS: Acetaminophen 325 MG TABLET PO PRN (21:32)
[2021-01-01] MEDS ORDERED: Nicotine 14 MG PATCH.TD24 TD SCH (09:00)
[2021-01-01] MEDS ORDERED: BuPROPion XL (24 HR) 150 MG TABLET PO SCH (09:00)
[2021-01-01] MEDS ORDERED: PARoxetine 10 MG TABLET PO SCH (09:00)
[2021-01-01] MEDS: Nicotine 14 MG PATCH.TD24 TD SCH (09:01)
[2021-01-01] MEDS: Furosemide 40 MG TABLET PO SCH (09:03)
[2021-01-01] MEDS: clonazePAM 1 MG TABLET PO SCH (09:03)
[2021-01-01] MEDS: hydrOXYzine pamoate 25 MG CAPSULE PO PRN ×2 (09:51→21:50)
[2021-01-01] MEDS: diazePAM 5 MG TABLET PO SCH ×2 (15:01→20:23)
[2021-01-01] MEDS: Mirtazapine 15 MG TABLET PO SCH (20:22)
[2021-01-01] MEDS: traZODone 50 MG TABLET PO SCH (20:22)
[2021-01-01] MEDS: Acetaminophen 325 MG TABLET PO PRN (20:23)
[2021-01-02] MEDS ORDERED: Paliperidone Palmitate 234 MG/1.5 ML SYRINGE IM SCH (08:00)
[2021-01-02] MEDS: Furosemide 40 MG TABLET PO SCH (09:28)
[2021-01-02] MEDS: BuPROPion XL (24 HR) 150 MG TABLET PO SCH (09:28)
[2021-01-02] MEDS: diazePAM 5 MG TABLET PO SCH ×3 (09:28→20:35)
[2021-01-02] MEDS: Nicotine 14 MG PATCH.TD24 TD SCH (09:28)
[2021-01-02] MEDS: PARoxetine 30 MG TABLET PO SCH (09:29)
[2021-01-02] MEDS: hydrOXYzine pamoate 25 MG CAPSULE PO PRN ×2 (11:52→23:11)
[2021-01-02] MEDS: Mirtazapine 15 MG TABLET PO SCH (20:35)
[2021-01-02] MEDS: traZODone 50 MG TABLET PO SCH (20:35)
[2021-01-03 09:12] VITALS: BP 90/59; PULSE 77; TEMP 98.5; O2SAT 98
[2021-01-03] MEDS: PARoxetine 30 MG TABLET PO SCH (09:13)
[2021-01-03] MEDS: BuPROPion XL (24 HR) 150 MG TABLET PO SCH (09:14)
[2021-01-03] MEDS: Furosemide 40 MG TABLET PO SCH (09:14)
[2021-01-03] MEDS: diazePAM 5 MG TABLET PO SCH (09:14)
[2021-01-03] MEDS: Nicotine 14 MG PATCH.TD24 TD SCH (09:15)
[2021-01-03] MEDS: hydrOXYzine pamoate 25 MG CAPSULE PO PRN (11:52)
== END 2021-01-03 14:45 | disposition home or self-care (01) | DRG 880 ==
LOC: EMEROOARM 15:05 → 1ANU 20:54
PROVIDERS: ADMIT Psychiatry & Neurology Psychiatry; ATTEND Psychiatry & Neurology Psychiatry